=== PATIENT | male | born 1965 | race Caucasian/White ===

== ENCOUNTER → 2020-08-20 | Outpatient (CLI) | payer OTHER ==
--- NOTE | 2020-08-20 16:55 | RAD ---
Site ID: [id number] EXAMINATION: XR KNEE _3 VIEWS_LT. HISTORY: 54 years Male Reason: LEFT KNEE PAIN / Spl. Instructions: / History: . COMPARISON: None. FINDINGS: No fracture, dislocation or radiopaque foreign body. There is mild joint space narrowing in the me dial compartment with associated the marginal osteophytes. Small osteophytes in the patellofemoral co mpartment seen. There is evidence of prior ACL repair with the correlating screws in the tibia and fe mur. IMPRESSION: Degenerative changes. Evidence of prior ACL repair. Electronically signed by: Endy Harrell MD (08/20/2020 4:52 PM) [id number]
== END ==
LOC: PMG 16:35
PROVIDERS: ATTEND Nurse Practitioner Family
DX: M25.762 Osteophyte, left knee (principal); M17.12 Unilateral primary osteoarthritis, left knee
CPT/HCPCS: 73562